=== PATIENT | female | born 1995 | race Asian ===

== ENCOUNTER → 2017-04-19 | Outpatient (CLI) | payer OTHER ==
[~2017-04-19] MED LIST: GADOBUTROL 7.5 MMOL/7.5 ML PFS ONE
== END | disposition home or self-care (01) ==
LOC: RAD 17:04
PROVIDERS: ATTEND Family Medicine
DX: N83.292 Other ovarian cyst, left side (principal); N92.0 Excessive and frequent menstruation with regular cycle; R87.610 Atypical squamous cells of undetermined significance on cytologic smear of cervix (ASC-US); N83.9 Noninflammatory disorder of ovary, fallopian tube and broad ligament, unspecified
CPT/HCPCS: 72197; A9585

== ENCOUNTER 2017-06-02 02:07 | Emergency (ER) | payer OTHER ==
[~2017-06-02] VITALS: Ht 162.6 cm; Wt 60.8 kg
[2017-06-02] MEDS ORDERED: iron (02:19)
[2017-06-02] MEDS ORDERED: FOLI-17 PO (02:35)
[2017-06-02] MEDS ORDERED: ASPI1TAB2 PO (02:35)
[2017-06-02] MEDS ORDERED: FERR325T10 PO (02:35)
[2017-06-02] MEDS ORDERED: HYDROmorphone 1 MG/ML, 1ML ONE ×2 (03:26→04:39)
[2017-06-02] MEDS ORDERED: ONDANSETRON 2MG/ML, 2ML ONE (03:26)
[2017-06-02] MEDS ORDERED: SODIUM CHLORIDE 0.9% 1,000ML IVBOLUS ONE (03:30)
[2017-06-02] MEDS ORDERED: ONDANSETRON 2MG/ML, 2ML IVPush ONE (03:30)
[2017-06-02] MEDS ORDERED: KETOROLAC 30 MG/1 ML IVPush ONE (03:30)
[2017-06-02] MEDS: HYDROmorphone 1 MG/ML, 1ML IVPush PRN ×2 (03:35→04:43)
[2017-06-02 03:42] LABS: BLOOD UREA NITROGEN 13 mg/dL (7-18)
[2017-06-02] MEDS ORDERED: KETOROLAC 30 MG/1 ML ONE (04:21)
[2017-06-02 07:32] VITALS: BP 114/79
== END 2017-06-02 07:34 | disposition home or self-care (01) ==
LOC: ED 02:44
DX: N83.202 Unspecified ovarian cyst, left side (principal)
CPT/HCPCS: 36415; 76770; 76830; 80048; 81003; 82040; 85025; 96361; 96374; 96375; 96376; 99285; J1170; J1885; J2405; J7030

== ENCOUNTER 2017-06-12 10:04 | Day surgery (SDC) | payer OTHER ==
[~2017-06-12] VITALS: Ht 162.6 cm; Wt 61.0 kg
[~2017-06-12 10:04] MED LIST changes: +ASPI1TAB2 PO; +FERR325T10 PO; +FOLI-17 PO; -GADOBUTROL 7.5 MMOL/7.5 ML PFS ONE; +iron
[2017-06-12 10:39] VITALS: BP 109/74
[2017-06-12] MEDS ORDERED: LACTATED RINGERS 1,000 ML IV SCH (10:43)
[2017-06-12] MEDS ORDERED: IBUP800T PO (10:45)
[2017-06-12] MEDS ORDERED: HYDR-3138 PO (10:45)
[2017-06-12 10:47] LABS: HCG UR OBC PASS
[2017-06-12] MEDS ORDERED: LIDOCAINE 1%, 2ML ONE (10:47)
[2017-06-12] MEDS ORDERED: LIDOCAINE 1%, 2ML SQ PRN (11:00)
[2017-06-12] MEDS ORDERED: BUPIVACAINE/PF 0.25% ONE (12:06)
[2017-06-12] MEDS ORDERED: SILVER NITRATE STICK TP ONE (12:06)
[2017-06-12] MEDS ORDERED: MIDAZOLAM 1 MG/ML, 2ML ONE ×2 (13:05→14:51)
[2017-06-12] MEDS ORDERED: FENTANYL PF 250 MCG/5ML ONE (13:05)
[2017-06-12] MEDS ORDERED: SCOPOLAMINE PATCH, 1.5MG PATCH.TD72 TD ONE ×2 (13:10)
[2017-06-12] MEDS ORDERED: ONDANSETRON 2MG/ML, 2ML ONE (13:16)
[2017-06-12] MEDS ORDERED: GLYCOPYRROLATE 0.2MG/1ML ONE (13:16)
[2017-06-12] MEDS ORDERED: KETOROLAC 30 MG/1 ML ONE (13:16)
[2017-06-12] MEDS ORDERED: PROPOFOL 10 MG/ML, 20ML ONE (13:16)
[2017-06-12] MEDS ORDERED: NEOSTIGMINE 1 MG/ML, 10ML ONE (13:16)
[2017-06-12] MEDS ORDERED: DEXAMETHASONE 4 MG/ML, 1ML ONE (13:16)
[2017-06-12] MEDS ORDERED: ROCURONIUM 10 MG/ML ONE (13:16)
[2017-06-12] MEDS ORDERED: MEPERIDINE/PF 25MG/0.5ML IVPush PRN (14:30)
[2017-06-12] MEDS ORDERED: PROMETHAZINE 25 MG/ML, 1ML IV PRN (14:30)
[2017-06-12] MEDS ORDERED: HYDROmorphone 1 MG/ML, 1ML IV PRN (14:30)
[2017-06-12] MEDS ORDERED: OXYcodone 5 MG/5 ML ORAL.SOL UDC PO PRN (14:30)
[2017-06-12] MEDS ORDERED: ACETAMINOPHEN 325 MG TABLET PO PRN (14:30)
[2017-06-12] MEDS ORDERED: OXYcodone 5 MG/5 ML ORAL.SOL UDC ONE (14:45)
[2017-06-12] MEDS ORDERED: FENTANYL PF 100 MCG/2ML ONE (14:45)
[2017-06-12] MEDS: FENTANYL PF 100 MCG/2ML IV PRN ×2 (14:46→14:55)
[2017-06-12] MEDS: MIDAZOLAM 1 MG/ML, 2ML IV PRN ×2 (14:50→14:58)
[2017-06-12] MEDS ORDERED: MEPERIDINE/PF 25MG/0.5ML ONE (14:53)
[2017-06-12] MEDS ORDERED: HYDROmorphone 2 MG/ML, 1ML ONE (16:06)
[2017-06-12] MEDS ORDERED: HYDROmorphone 2 MG/ML, 1ML IVPush PRN (16:30)
[2017-06-12] MEDS ORDERED: ONDANSETRON 2MG/ML, 2ML IVPush PRN (16:30)
[2017-06-12] MEDS ORDERED: OXYcodone/APAP 5/325MG TABLET PO PRN (16:30)
[2017-06-12] MEDS ORDERED: KETOROLAC 30 MG/1 ML IVPush PRN (16:30)
== END 2017-06-12 18:25 ==
LOC: OUT 10:04
PROVIDERS: ATTEND Student in an Organized Health Care Education/Training Program
DX: N83.8 Other noninflammatory disorders of ovary, fallopian tube and broad ligament (principal); R19.09 Other intra-abdominal and pelvic swelling, mass and lump
CPT/HCPCS: 36415; 58661; 81025; 86850; 86900; 88112; 88305; J1100; J1170; J1885; J2175; J2250; J2405; J2704; J2710; J3010; J3490; J7120

== ENCOUNTER 2017-10-17 12:16 | Observation (INO) | payer OTHER ==
[~2017-10-17] VITALS: Ht 165.1 cm; Wt 57.0 kg
[~2017-10-17 12:16] MED LIST changes: +ASPI-691 PO; -ASPI1TAB2 PO; +FERR-36 PO; -FERR325T10 PO; +HYDR-3237 PO; +IBUP-1223 PO
[2017-10-17] MEDS ORDERED: ONDANSETRON 2MG/ML, 2ML IVPush ONE ×2 (13:00→13:30)
[2017-10-17] MEDS ORDERED: SODIUM CHLORIDE 0.9% 1,000ML IVBOLUS ONE (13:00)
[2017-10-17] MEDS ORDERED: SODIUM CHLORIDE FLUSH 10ML SYR IVF ONE (13:00)
[2017-10-17] MEDS ORDERED: morphine SULFATE 10 MG/ML, 1ML ONE ×3 (13:10→16:44)
[2017-10-17] MEDS ORDERED: ONDANSETRON 2MG/ML, 2ML ONE ×2 (13:10→18:35)
[2017-10-17] MEDS: MORPHINE SULFATE 4 MG/ML, 1ML IVPush PRN ×2 (13:16→13:30)
[2017-10-17 13:22] LABS: HEMATOCRIT 42.7 % (34.6-47.8); HEMOGLOBIN 14.7 g/dL (11.7-16.4); WHITE BLOOD COUNT 11.8 x10^3/uL (3.4-10)
[2017-10-17 13:30] LABS: ASPARTATE AMINO TRANSFERASE 29 U/L (15-37); BLOOD UREA NITROGEN 5 mg/dL (7-18)
[2017-10-17] MEDS ORDERED: MORPHINE SULFATE 4 MG/ML, 1ML IVPush PRN (17:00)
[2017-10-17] MEDS ORDERED: HYDROmorphone 1 MG/ML, 1ML ONE ×2 (17:28→19:04)
[2017-10-17] MEDS ORDERED: HYDROmorphone 1 MG/ML, 1ML IVPush PRN (17:30)
[2017-10-17] MEDS ORDERED: BUPIVACAINE/PF 0.25% ONE (18:17)
[2017-10-17] MEDS ORDERED: EPINEPHRINE 1 MG/ML, 1ML ONE (18:18)
[2017-10-17] MEDS ORDERED: SILVER NITRATE STICK TP ONE (18:18)
[2017-10-17 18:19] VITALS: BP 124/69
[2017-10-17] MEDS ORDERED: PROPOFOL 10 MG/ML, 20ML ONE ×3 (18:35→19:16)
[2017-10-17] MEDS ORDERED: DEXAMETHASONE 4 MG/ML, 1ML ONE (18:35)
[2017-10-17] MEDS ORDERED: SUCCINYLCHOLINE 20 MG/ML, 10ML ONE (18:35)
[2017-10-17] MEDS ORDERED: FENTANYL PF 250 MCG/5ML ONE (18:35)
[2017-10-17] MEDS ORDERED: LIDOCAINE GEL 2%, 5ML ONE ×2 (18:41→20:00)
[2017-10-17] MEDS ORDERED: ONDANSETRON 2MG/ML, 2ML IVPush PRN (19:30)
[2017-10-17] MEDS ORDERED: HYDROmorphone 1 MG/ML, 1ML IV PRN (19:30)
[2017-10-17] MEDS ORDERED: ACETAMINOPHEN 325 MG TABLET PO PRN (19:30)
[2017-10-17] MEDS ORDERED: INTERCEED 3 X 4 INCH DRESSING ONE (19:40)
[2017-10-17] MEDS ORDERED: KETOROLAC 30 MG/1 ML IVPush ONE (20:30)
[2017-10-17] MEDS ORDERED: FENTANYL PF 100 MCG/2ML ONE (20:37)
[2017-10-17] MEDS ORDERED: ACETAMINOPHEN 650 MG/20.3 ML UDC ONE (20:37)
[2017-10-17] MEDS ORDERED: OXYcodone 5 MG/5 ML ORAL.SOL UDC ONE (20:37)
[2017-10-17] MEDS: FENTANYL PF 100 MCG/2ML IV PRN ×4 (20:38→21:06)
[2017-10-17] MEDS ORDERED: KETOROLAC 30 MG/1 ML ONE (20:48)
[2017-10-17] MEDS ORDERED: OXYcodone 5 MG/5 ML ORAL.SOL UDC PO PRN (21:00)
[2017-10-17] MEDS ORDERED: OXYC-302 PO (22:41)
[2017-10-17] MEDS ORDERED: DOCU100C33 PO (22:41)
[2017-10-17] MEDS ORDERED: PREN-53 PO (23:08)
== END 2017-10-18 01:20 | disposition home or self-care (01) ==
LOC: ED 15:51 → 4NOR 21:50 → ED 23:02 → 4NOR 23:03
PROVIDERS: ADMIT Obstetrics & Gynecology; ATTEND Obstetrics & Gynecology
DX: O34.593 Maternal care for other abnormalities of gravid uterus, third trimester (principal); N83.511 Torsion of right ovary and ovarian pedicle; N83.11 Corpus luteum cyst of right ovary; Z3A.38 38 weeks gestation of pregnancy
CPT/HCPCS: 36415; 49322; 74181; 76770; 76801; 80048; 80076; 81001; 82040; 84702; 85025; 86850; 86900; 86901; 87086; 96374; 96375; 96376; 99291; C1765; G0378; J0171; J0330; J1100; J1170; J1885; J2405; J2704; J3010; J3490; J7030

== ENCOUNTER 2018-05-05 01:54 | Observation (INO) | payer OTHER ==
[~2018-05-05] VITALS: Ht 165.1 cm; Wt 67.2 kg
[~2018-05-05 01:54] MED LIST changes: +DOCU100C33 PO; -FERR-36 PO; +FERR-51 PO; +OXYC-302 PO; +PREN-53 PO
[2018-05-05 02:29] LABS: BASOPHILS # (AUTO) 0.02 x10^3/uL (0-0.1); BASOPHILS % (AUTO) 0 % (0-1); EOSINOPHILS # (AUTO) 0.18 x10^3/uL (0-0.4); EOSINOPHILS % (AUTO) 1 % (1-7); LYMPHOCYTES # (AUTO) 2.57 x10^3/uL (1-3.4); LYMPHOCYTES % (AUTO) 18 % (22-44); MD NO; MEAN CORPUSCULAR HEMOGLOBIN 30.2 pg (27.0-34.8); MEAN CORPUSCULAR HGB CONC 33.8 g/dL (32.4-35.8); MEAN CORPUSCULAR VOLUME 89.1 fL (80-100); MEAN PLATELET VOLUME 8.1 fL (7.4-10.4); MONOCYTES # (AUTO) 1.18 x10^3/uL (0.2-0.8); MONOCYTES % (AUTO) 8 % (2-9); NEUTROPHILS # (AUTO) 10.41 x10^3/uL (1.8-6.8); NEUTROPHILS % (AUTO) 73 % (42-75); PLATELET COUNT 255 x10^3/uL (130-400); RED CELL DISTRIBUTION WIDTH 12.9 % (9.6-15.2)
[2018-05-05 02:33] LABS: MICROSCOPIC INDICATED
[2018-05-05 02:41] LABS: CULTURE INDICATED? NO
[2018-05-05 02:42] LABS: ALANINE AMINOTRANSFERASE 25 U/L (12-78); ALBUMIN 2.8 g/dL (3.4-5.0); ANION GAP 9 mmol/L (5-15); CHLORIDE 110 mmol/L (98-107); CREATININE 0.57 mg/dL (0.55-1.02)
[2018-05-05 02:44] LABS: ALKALINE PHOSPHATASE 210 U/L (45-117); BILIRUBIN,TOTAL 0.5 mg/dL (0.2-1.0); TOTAL PROTEIN 6.7 g/dL (6.4-8.2)
[2018-05-05] MEDS ORDERED: PROMETHAZINE 25 MG/ML, 1ML ONE (02:47)
[2018-05-05] MEDS ORDERED: MEPERIDINE/PF 100 MG/ML ONE (02:47)
[2018-05-05] MEDS ORDERED: PROMETHAZINE 25 MG/ML, 1ML IM PRN (03:00)
[2018-05-05] MEDS ORDERED: MEPERIDINE/PF 50 MG/ML IM PRN (03:00)
[2018-05-05] MEDS ORDERED: LACTATED RINGERS 1,000 ML IV SCH (03:00)
[2018-05-05] MEDS ORDERED: ACETAMINOPHEN 325 MG TABLET PO PRN (03:00)
[2018-05-05] MEDS ORDERED: PREN-59 PO (04:00)
== END 2018-05-05 04:10 | disposition home or self-care (01) ==
LOC: LDOP 01:54 → LDIP 02:51
PROVIDERS: ADMIT Obstetrics & Gynecology; ATTEND Obstetrics & Gynecology
DX: O26.893 Other specified pregnancy related conditions, third trimester (principal); R10.9 Unspecified abdominal pain; Z3A.36 36 weeks gestation of pregnancy
CPT/HCPCS: 36415; 59025; 76770; 80053; 81001; 82150; 83690; 84550; 85025; 86850; 86900; 87086; 96372; G0378; J2175; J2550; 96360

== ENCOUNTER 2018-05-27 09:50 | Inpatient (IN) | payer OTHER ==
[~2018-05-27] VITALS: Ht 165.1 cm; Wt 66.8 kg
[~2018-05-27 09:50] MED LIST changes: +PREN-59 PO
[2018-05-31] MEDS ORDERED: LACTATED RINGERS 1,000 ML IV SCH (05:53)
[2018-05-31] MEDS ORDERED: OXYTOCIN 30U/ 0.9% NaCL 500ML 500 ML IV ONE (05:53)
[2018-05-31] MEDS ORDERED: D5%-LACTATED RINGERS 1,000 ML IV SCH (05:53)
[2018-05-31] MEDS ORDERED: CALCIUM CARBONATE 500 MG TAB.CHEW PO PRN (06:00)
[2018-05-31] MEDS ORDERED: METOCLOPRAMIDE 5 MG/ML, 2ML IVPush PRN (06:00)
[2018-05-31] MEDS ORDERED: ONDANSETRON 2MG/ML, 2ML IVPush PRN (06:00)
[2018-05-31] MEDS ORDERED: FENTANYL PF 100 MCG/2ML IV PRN (06:00)
[2018-05-31] MEDS ORDERED: TERBUTALINE 1 MG/ML, 1ML IVPush PRN (06:00)
[2018-05-31] MEDS ORDERED: SODIUM CITRATE/CITRIC ACID 30 ML UDC PO PRN (06:00)
[2018-05-31 06:09] VITALS: BP 122/78
[2018-05-31 06:18] LABS: BASOPHILS # (AUTO) 0.07 x10^3/uL (0-0.1); BASOPHILS % (AUTO) 1 % (0-1); EOSINOPHILS % (AUTO) 1 % (1-7); LYMPHOCYTES # (AUTO) 2.41 x10^3/uL (1-3.4); LYMPHOCYTES % (AUTO) 19 % (22-44); MD NO; MEAN CORPUSCULAR HEMOGLOBIN 30.2 pg (27.0-34.8); MEAN CORPUSCULAR HGB CONC 33.8 g/dL (32.4-35.8); MEAN CORPUSCULAR VOLUME 89.6 fL (80-100); MEAN PLATELET VOLUME 9.1 fL (7.4-10.4); MONOCYTES % (AUTO) 8 % (2-9); NEUTROPHILS # (AUTO) 8.91 x10^3/uL (1.8-6.8); NEUTROPHILS % (AUTO) 71 % (42-75); PLATELET COUNT 248 x10^3/uL (130-400); RED BLOOD COUNT 4.55 x10^6/uL (3.82-5.3); RED CELL DISTRIBUTION WIDTH 13.7 % (9.6-15.2)
[2018-05-31] MEDS ORDERED: OXYTOCIN 30U/ 0.9% NaCL 500ML 500 ML IV PRN (06:20)
[2018-05-31] MEDS ORDERED: AMPICILLIN 2 GM in SODIUM CHLORIDE 0.9% 100 ML IVPB STA (06:20)
[2018-05-31] MEDS ORDERED: OXYTOCIN 30U/ 0.9% NaCL 500ML 500 ML ONE (06:24)
[2018-05-31] MEDS ORDERED: FENTANYL/BUPIV./NS/PF 250 ML EPIDCONT SCH ×2 (09:37→17:23)
[2018-05-31] MEDS ORDERED: FENTANYL PF 500 MCG, BUPIVACAINE/PF 0.5%, 30ML 62.5 ML in SODIUM CHLORIDE 0.9% 177.5 ML EPIDCONT SCH ×2 (10:00→17:30)
[2018-05-31] MEDS: AMPICILLIN 1 GM in SODIUM CHLORIDE 0.9% 100 ML IVPB SCH ×3 (11:03→20:22)
[2018-05-31] MEDS ORDERED: FENTANYL PF 100 MCG/2ML ONE ×2 (15:17→17:10)
[2018-05-31] MEDS: FENTANYL PF 100 MCG/2ML IVPush PRN ×2 (15:21→17:13)
[2018-05-31] MEDS ORDERED: CALCIUM CARBONATE 500 MG TAB.CHEW ONE ×2 (17:51→21:32)
[2018-05-31] MEDS ORDERED: FENTANYL/BUPIV./NS/PF 250 ML EPIDCONT ONE (18:29)
[2018-05-31] MEDS ORDERED: LIDOCAINE/PF 1.5%-EPI 1:200K, 30ML ONE (18:29)
[2018-05-31] MEDS ORDERED: MISOPROSTOL 200 MCG TABLET ONE (19:02)
[2018-05-31] MEDS ORDERED: LIDOCAINE/PF 1%, 30ML ONE (19:02)
[2018-05-31] MEDS ORDERED: NEWBORN KIT ONE (23:06)
[2018-06-01] MEDS ORDERED: LACTATED RINGERS 1,000 ML IV SCH (00:29)
[2018-06-01] MEDS ORDERED: FENTANYL/BUPIV./NS/PF 250 ML EPIDCONT SCH (00:29)
[2018-06-01] MEDS ORDERED: EPHEDRINE 50 MG/ML, 1ML IVPush PRN (00:30)
[2018-06-01] MEDS ORDERED: DIPHENHYDRAMINE 50 MG/ML, 1ML IVPush PRN (00:30)
[2018-06-01] MEDS ORDERED: LACTATED RINGERS 1,000 ML IVBOLUS PRN (00:30)
[2018-06-01] MEDS ORDERED: ONDANSETRON 2MG/ML, 2ML IVPush PRN (00:30)
[2018-06-01] MEDS ORDERED: NALOXONE 0.4 MG/ML, 1ML IVPush PRN (00:30)
[2018-06-01] MEDS ORDERED: OXYcodone/APAP 5/325MG TABLET ONE (01:16)
[2018-06-01] MEDS ORDERED: IBUPROFEN 600 MG TABLET ONE (01:16)
[2018-06-01] MEDS: OXYcodone/APAP 5/325MG TABLET PO PRN ×4 (01:22→22:02)
[2018-06-01] MEDS: IBUPROFEN 600 MG TABLET PO PRN ×2 (01:22→17:35)
[2018-06-01] MEDS ORDERED: OXYcodone/APAP 5/325MG TABLET PO PRN (01:30)
[2018-06-01] MEDS ORDERED: MISOPROSTOL 200 MCG TABLET PR PRN (01:30)
[2018-06-01] MEDS ORDERED: ACETAMINOPHEN 325 MG TABLET PO PRN (01:30)
[2018-06-01] MEDS ORDERED: CARBOPROST TROMETHAMINE 250 MCG/ML, 1ML IM PRN (01:30)
[2018-06-01] MEDS ORDERED: RHOGAM FROM BLOOD BANK 1 NOTE EA IM/IV ONE (01:30)
[2018-06-01] MEDS ORDERED: MEASLES,MUMPS&RUBELLA VACC/PF 0.5 ML SQ PRN (01:30)
[2018-06-01] MEDS ORDERED: METHYLERGONOVINE 0.2 MG/ML IM PRN (01:30)
[2018-06-01] MEDS ORDERED: DIPH,PERTUSS(ACELL),TET VAC/PF NC IM-VACC PRN (01:30)
[2018-06-01] MEDS ORDERED: OXYTOCIN 30U/ 0.9% NaCL 500ML 500 ML ONE (01:57)
[2018-06-01] MEDS: OXYTOCIN 30U/ 0.9% NaCL 500ML 500 ML IV SCH ×3 (02:02→21:14)
[2018-06-01 03:25] VITALS: BP 102/67
[2018-06-01 08:15] VITALS: BP 104/67
[2018-06-01] MEDS: PRENATAL VIT/IRON/FA 1 EACH TABLET PO SCH (09:00)
[2018-06-01 09:46] LABS: MEAN CORPUSCULAR HEMOGLOBIN 30.4 pg (27.0-34.8); MEAN CORPUSCULAR HGB CONC 33.5 g/dL (32.4-35.8); MEAN CORPUSCULAR VOLUME 90.7 fL (80-100); MEAN PLATELET VOLUME 8.5 fL (7.4-10.4); PLATELET COUNT 220 x10^3/uL (130-400); RED BLOOD COUNT 4.09 x10^6/uL (3.82-5.3); RED CELL DISTRIBUTION WIDTH 13.5 % (9.6-15.2)
[2018-06-01 10:02] LABS: BASOPHILS # (AUTO) 0.06 x10^3/uL (0-0.1); BASOPHILS % (AUTO) 0 % (0-1); EOSINOPHILS # (AUTO) 0.04 x10^3/uL (0-0.4); EOSINOPHILS % (AUTO) 0 % (1-7); LYMPHOCYTES # (AUTO) 1.96 x10^3/uL (1-3.4); LYMPHOCYTES % (AUTO) 11 % (22-44); MD SCAN; MONOCYTES # (AUTO) 1.71 x10^3/uL (0.2-0.8); MONOCYTES % (AUTO) 9 % (2-9); NEUTROPHILS % (AUTO) 79 % (42-75)
[2018-06-01 12:00] VITALS: BP 112/70
[2018-06-01 16:00] VITALS: BP 118/72
[2018-06-01] MEDS: DOCUSATE 100 MG CAPSULE PO PRN (17:34)
[2018-06-01 19:35] VITALS: BP 113/76
[2018-06-02 00:20] VITALS: BP 114/76
[2018-06-02] MEDS: IBUPROFEN 600 MG TABLET PO PRN ×4 (00:27→20:39)
[2018-06-02] MEDS: OXYTOCIN 30U/ 0.9% NaCL 500ML 500 ML IV SCH ×2 (07:14→17:14)
[2018-06-02] MEDS: PRENATAL VIT/IRON/FA 1 EACH TABLET PO SCH (07:28)
[2018-06-02] MEDS: DOCUSATE 100 MG CAPSULE PO PRN ×2 (07:28→20:40)
[2018-06-02] MEDS: OXYcodone/APAP 5/325MG TABLET PO PRN ×2 (07:28→20:39)
[2018-06-02 08:40] VITALS: BP 116/79
[2018-06-02 20:30] VITALS: BP 120/85
[2018-06-02] MEDS ORDERED: CALCIUM CARBONATE 500 MG TAB.CHEW PO PRN (21:30)
[2018-06-03] MEDS: OXYTOCIN 30U/ 0.9% NaCL 500ML 500 ML IV SCH (03:14)
[2018-06-03] MEDS: IBUPROFEN 600 MG TABLET PO PRN ×2 (05:15→12:23)
[2018-06-03] MEDS: OXYcodone/APAP 5/325MG TABLET PO PRN ×3 (05:15→14:49)
[2018-06-03 08:15] VITALS: BP 113/74
[2018-06-03] MEDS: DOCUSATE 100 MG CAPSULE PO PRN (09:00)
[2018-06-03] MEDS: PRENATAL VIT/IRON/FA 1 EACH TABLET PO SCH (09:00)
[2018-06-03] MEDS ORDERED: IBUP-1222 PO (13:27)
[2018-06-03] MEDS ORDERED: OXYC-302 PO (13:27)
[2018-06-03] MEDS ORDERED: DOCU-131 PO (13:28)
== END 2018-06-03 14:55 | disposition home or self-care (01) | DRG 775 ==
LOC: LDIP 05-31 05:52 → 2NW 06-01 03:03
PROVIDERS: ADMIT Obstetrics & Gynecology; ATTEND Obstetrics & Gynecology
PROC: 10E0XZZ Delivery of Products of Conception, External Approach (ICD-10-PCS; principal; 2018-06-01)
PROC: 0KQM0ZZ Repair Perineum Muscle, Open Approach (ICD-10-PCS; 2018-06-01)
PROC: 3E0R3BZ Introduction of Anesthetic Agent into Spinal Canal, Percutaneous Approach (ICD-10-PCS; 2018-06-01)
PROC: 00HU33Z Insertion of Infusion Device into Spinal Canal, Percutaneous Approach (ICD-10-PCS; 2018-06-01)
PROC: 3E033VJ Introduction of Other Hormone into Peripheral Vein, Percutaneous Approach (ICD-10-PCS; 2018-06-01)
DX: O48.0 Post-term pregnancy (principal); O99.354 Diseases of the nervous system complicating childbirth; O99.824 Streptococcus B carrier state complicating childbirth; O70.1 Second degree perineal laceration during delivery; Z3A.40 40 weeks gestation of pregnancy; Z37.0 Single live birth; G43.909 Migraine, unspecified, not intractable, without status migrainosus; Z90.721 Acquired absence of ovaries, unilateral
CPT/HCPCS: 36415; J7121; 85025; 86850; 86900; J0290; J3010; J3490; J2590; J7120